=== PATIENT | female | born 1955 | race Caucasian/White ===

== ENCOUNTER → 2023-06-02 07:13 | Outpatient (REF) | payer MEDICARE, SELFPAY ==
--- NOTE | 2023-06-02 07:19 | CA_ITS ---
Transthoracic Echocardiogram Patient (Last, First, Middle): Lora Woods, Gender: Female Date of : 1955 Age: 67 Procedure Date: 06/02/2023 Procedure Type: Transthoracic Echocardiogram Location: OP Height: 157.48 cm Weight: 84.37 kg BSA: 1.85 m2 Heart Rate: 65 bpm BP: 140 / 74 mmHg [employer]: SB Referring MD: Calista SENIOR Symptoms: CARDIOMEGALY RO7.9 CHEST PAIN,UNSPECIFIED Study Quality: Adequate ECG Rhythm: Sinus Conclusions: - The left ventricular systolic function is normal. The calculated ejection fraction is 59% by biplane method. - No obvious valvular pathology seen on this study. Findings Left Ventricle Normal left ventricular cavity size. There is normal left ventricular wall thickness. The left ventricular systolic function is normal. The calculated ejection fraction is 59% by biplane method. There is no evidence of regional wall motion abnormalities. Diastolic function is normal for age. LV peak systolic GLS -16.7%; possible underestimate. Right Ventricle Normal right ventricular cavity size and systolic function. Atria Both atria are normal in size. Aortic Valve There is a normal trileaflet aortic valve. There is no aortic valve stenosis. There is no aortic valve regurgitation. Mitral Valve The mitral valve appears normal. There is no mitral valve regurgitation. There is no mitral valve stenosis. Pulmonic Valve The pulmonic valve is likely normal. Tricuspid Valve Normal tricuspid valve structure. There is mild tricuspid valve regurgitation. There is no evidence of pulmonary hypertension. Great Vessels The asc aorta is normal in size. Venous The inferior vena cava is normal in size and collapses greater than 50% with inspiration. Pericardium/Pleural There is no evidence of pericardial effusion. Prior Study Comparison No prior study available for comparison. Recommendations, Care & Conclusions No obvious valvular pathology seen on this study. Measurements 2D Linear Measurements IVSd: 0.66 0.6-0.9/0.6-1.0 cm LVIDd: 4.55 3.9-5.3/4.2-5.9 cm LVIDd Index: 2.46 2.4-3.2/2.2-3.1 cm/m2 LVIDs: 3.33 2.0-3.6 cm LVPWd: 0.66 0.7-1.1 cm Ao Root: 1.00 2.1-3.5 cm LA Diam: 3.70 2.7-3.8/3.0-4.0 cm LAIDs Index: 2.00 1.5-2.3 cm/m2 LV Mass: 113.03 67-162/88-224 g LV Mass Index: 61.10 43-95/49-115 g/m2 LVOT Diam: 2.00 3.0+(-)1.3 cm 2D Systolic Function EF 4C: 57.50 >55% EF 2C: 63.00 >55% EF BiP: 58.50 >55% Mitral Valve MV Pk E: 0.92 MV PK A: 0.74 MV Decel Time: 211.00 E/A: 1.20 E'Lateral: 8.38 E'Medial: 6.42 E/E' Med: 14.30 E/E' Lat: 10.90 PHT: 62.00 MVA PHT: 3.55 Decel [place]: 4.35 Aortic Valve AoV Pk Anthony: 1.23 AoV Pk Grad: 6.00 LINA: 2.70 LVOT LVOT Pk Anthony: 1.07 LVOT Mn Anthony: 0.68 LVOT VTI: 0.22 LVOT Pk Grad: 5.00 LVOT Mn Grad: 2.00 LVOT Diam: 2.00 LVOT Area: 3.14 Diastolic Function MV Pk E: 0.92 MV Pk A: 0.74 E/A: 1.20 E'Medial: 6.42 E/E' Med: 14.30 E' Laterial: 8.38 E/E' Lat: 10.90 Right Ventricle TAPSE (mm): 24.00 TVS' Anthony: 11.00 Tricuspid Valve TR Pk Anthony: 2.44 TR Pk Grad: 24.00 RA Press: 3.00 RVSP: 27.00 Great Vessels Aorta Ao Root-2D: 1.00 2.0-3.7 cm Sinus of Valsalva: 3.20 2.0-3.5 cm Ao Asc: 3.30 2.1-3.4 cm Pulmonary Veins Pulm Vein S/D 1.10 Pulmonary Valve PV Pk Anthony: 0.70 Peak PV Grad: 2.00 Updated in Other Vendor System with Status of Final Enrique Gloria MD electronically signed on 06/02/2023 9:10:57 AM with status of Final
== END ==
LOC: HO.CARD 07:13
PROVIDERS: PCP Nurse Practitioner Family; Visit Provider Nurse Practitioner Family
DX: R07.9 Chest pain, unspecified (principal); I51.7 Cardiomegaly
CPT/HCPCS: 93306; 93356

== ENCOUNTER → 2023-06-02 07:19 | Outpatient (BNV) | payer MEDICARE, SELFPAY | PROVIDERS: PCP Nurse Practitioner Family; Visit Provider Internal Medicine | DX: R07.9 Chest pain, unspecified (principal) | CPT/HCPCS: 93306 ==